=== PATIENT | male | born 1985 | race Caucasian/White ===

== ENCOUNTER 2017-03-13 16:21 | Inpatient (IN) ==
[2017-03-13] MEDS ORDERED: Vancomycin 1,250 MG in D5% in Water 250 ML IVPB ONE ×2 (16:46→17:00)
[2017-03-13] MEDS ORDERED: Ketorolac 15 MG/ML VIAL IVP ONE (16:51)
--- NOTE | 2017-03-13 16:53 | Emergency Department Note ---
Disposition Clinical Impression: Left arm pain Disposition: Still a Patient Condition: Good Referrals: Stephanie Medley CNP [Primary Care Provider] - Forms: Work/School Release, ED Satisfaction Letter Time of Disposition: 18:59 General Adult HPI - General Chief complaint: ED General Medical Stated complaint: Left arm injury Time Seen by Provider: 03/13/17 16:29 Source: patient Limitations: no limitations Nursing Notes Reviewed: Yes Vital Signs Reviewed: Yes - History of Present Illness HPI Narrative: Patient with a one-month history of left arm pain. He states he had an injury to this 1 month ago. He states over the past couple days he has noticed that there is been an increased pain and swelling to the area. Is also complaining of fevers chills and rigors over the past weekend. He states he has also had some nausea and vomiting. Patient's left elbow is red warm and swollen. He has strong pulses distal to this. The compartments are still soft. Pain Scale: 9 - Related Data Home Medications Medication Instructions Recorded Confirmed Buprenorphine HCl/Naloxone HCl 0.5 tab PO TID 12/04/15 [Suboxone 8 mg-2 mg Sl Film] Previous Rx's Medication Instructions Recorded Levofloxacin [Levaquin] 500 mg PO DAILY #10 tablet 12/05/15 Sulfamethoxazole/Trimeth DS 1 each PO BID #20 tablet 12/05/15 [Bactrim DS] Ciprofloxacin HCl/Dexameth 7.5 ml OT BID #1 drops.susp 03/18/16 [Ciprodex Otic Suspension] Oxycodone HCl/Acetaminophen 1 - 2 each PO Q6-8H PRN #20 tablet 03/18/16 [Percocet 5-325 mg Tablet] Cephalexin [Keflex] 500 mg PO QID #24 capsule 06/18/16 HYDROcodone/Acet 5/325 mg [[place] 1 tab PO Q6H PRN #5 tab 06/20/16 5-325 mg] Sulfamethoxazole/Trimeth DS 1 each PO BID #14 tablet 06/20/16 [Bactrim DS] Erythromycin OPTH Oint 1 appl RIGHT EYE ONCE 10 Days 10/24/16 Hydrocodone/Acetaminophen [[place] 1 tab PO Q6H PRN #14 tab 10/24/16 5-325 Tablet] Acetaminophen w/Cod 300-30 mg 1 each PO Q6HR #10 tablet 11/12/16 [Tylenol w/Codeine #3] Doxycycline 100 mg PO BID #20 capsule 11/12/16 Allergies Allergy/AdvReac Type Severity Reaction Status Date / Time No Known Allergies Allergy Verified 11/12/16 11:34 Past Medical History - Past Medical History Medical history: Reports: no medical history Surgical history: Reports: no surgical history Psychiatric history: Reports: no psych history, other - Social History Smoking Status: Current every day smoker Smokeless Tobacco Status: No Alcohol use: Reports: occasionally Drug use: Reports: none Physical Exam - General Limitations: no limitations General appearance: alert, in distress - Head Head exam: atraumatic, normocephalic - Eye Eye exam: Present: normal appearance, PERRL, EOMI. Absent: scleral icterus - ENT ENT exam: normal exam, normal oropharynx, mucous membranes moist - Neck Neck exam: Present: normal inspection, full ROM, trachea midline - Chest Chest inspection: Present: normal inspection, symmetric chest wall rise - Cardiovascular Cardiovascular exam: Present: regular rate, normal rhythm, normal heart sounds - Abdominal Exam Abdominal exam: Present: soft, Non-Tender, normal bowel sounds. Absent: tenderness, distention, guarding, rebound, rigidity, organomegaly - Expanded Upper Extremity Exam Shoulder exam: Present: normal inspection, full ROM Arm exam: Present: normal inspection, full ROM Elbow exam: Present: normal inspection (To right), full ROM (2 right), other ( Left elbow erythematous and warm and edematous. Extends approximately 2 cm distal to the olecranon and 2 cm proximal to the olecranon. Compartments are soft. Patient is neurovascularly intact in both upper extremities. Axillary lymphadenopathy noted. Decreased range of motion to the left elbow.) Forearm/Wrist exam: Present: normal inspection, full ROM Hand exam: Present: normal inspection, full ROM Vascular exam: Normal: capillary refill, radial pulse - Expanded Lower Extremity Exam Hip/Pelvis exam: Present: normal inspection, full ROM Upper leg exam: Present: normal inspection, full ROM Knee exam: Present: normal inspection, full ROM Lower leg exam: Present: normal inspection, full ROM Ankle exam: Present: normal inspection, full ROM Foot/toe exam: Present: normal inspection, full ROM Neurovascular/Tendon exam: Absent: motor deficit, sensory deficit, tendon deficit - Back Exam Back exam: Present: normal inspection, full ROM. Absent: tenderness, CVA tenderness (R), CVA tenderness (L) - Neurological Exam Neurological exam: Present: alert, oriented X3 - Psychiatric Psychiatric exam: Present: normal affect, normal mood - Skin Skin exam: Present: warm, dry, intact, normal color. Absent: rash Course Course Narrative: Pt presenting to the ED complaining of 1 month history of left arm pain. Patient said he fell approximately a month ago and had pain to his left elbow. He states however that over the past weekend he is to visit his elbow is now getting red and swollen. He has fevers and chills. He is now nauseated and vomiting. He is also complaining of a cough that is productive. Patient states that he takes Suboxone occasionally but this is not helping with his pain. He denies any chest pain. He denies any shortness of breath. He states that he just "feels bad." Patient appears ill. His left elbow is swollen warm and red. The erythema extends approximately 2 proximal and distal to his olecranon. He has decreased range of motion of his left elbow. There is an area of abrasion to his olecranon process. It is draining a clear fluid. The joint is tender to palpation. The compartments of patient's upper and lower arm are still soft. He is neurovascularly intact distal to this injury. I do not appreciate any axillary lymphadenopathy. Patient's lung sounds are clear bilaterally. His heart tones are normal. His abdomen is soft and nontender. He is tachycardic and has a fever while here. We will run a sepsis panel on him. We will give him a fluid bolus and start him on antibiotics for possible infection to his left elbow. While patient is here is very calm obvious that it is very difficult to get an IV established. The nursing staff has tried several times to place 1. We will try a midline. If this is not successful we will place a central line. Vital Signs Temperature 101.0 F H 03/13/17 16:24 Pulse Rate 153 03/13/17 16:24 Respiratory Rate 18 03/13/17 16:24 Blood Pressure 114/69 03/13/17 16:24 O2 Sat by Pulse Oximetry 96 03/13/17 16:24 Temperature 101.0 F H 03/13/17 16:24 Pulse Rate 153 03/13/17 17:16 Respiratory Rate 18 03/13/17 17:16 Blood Pressure 114/69 03/13/17 17:16 O2 Sat by Pulse Oximetry 96 03/13/17 17:16 Oxygen Delivery Oxygen Delivery Room Air Medical Decision Making - Lab Data Result diagrams: 03/13/17 17:06 03/13/17 17:06 Lab Results 03/13/17 03/13/17 03/13/17 Range/Units 17:06 17:06 17:06 WBC 15.0 H (4.3-11.1) K/mcL RBC 5.00 (4.19-5.50) M/mcL Hgb 13.8 (12.9-16.9) g/dL Hct 40.0 (37.5-50.1) % MCV 80.0 L (83.0-100.0) fL MCH 27.6 L (28.0-33.3) pg MCHC 34.5 (31.6-35.5) g/dL RDW 13.2 (11.5-14.5) % Plt Count 107 L (140-400) K/mcL MPV 11.8 (9.4-12.4) fL Immature Gran % Test Not Performed Seg Neutrophils % 84.0 % Band Neutrophils % 11.0 H (0-4) % Lymphocytes % 1.0 % Monocytes % 4.0 % Eosinophils % Test Not Performed Basophils % Test Not Performed Neutrophils # 14.3 H (1.6-8.9) K/mcL Lymphocytes # 0.2 L (0.6-4.6) K/mcL Monocytes # 0.6 (0.0-1.3) K/mcL Eosinophils # Test Not Performed Basophils # Test Not Performed Platelet Estimate Slight Decrease L (Normal) ESR (0-10) mm/hr Sodium 126 L (136-145) mEq/L Potassium 3.7 (3.5-4.5) mEq/L Chloride 92 L (98-109) mEq/L Carbon Dioxide 23 (19-29) mEq/L BUN 13 (8-26) mg/dL Creatinine 0.80 (0.72-1.25) mg/dL Est GFR ( Amer) > 60 (> 60) Est GFR (Non-Af Amer) > 60 (> 60) BUN/Creatinine Ratio 16 (6-26) Glucose 130 H (70-99) mg/dL Calculated Osmolality 264 L (280-300) Lactic Acid 2.5 H (0.5-2.2) mmol/L Calcium 9.3 (8.6-10.8) mg/dL Total Bilirubin 6.0 H (0.2-1.2) mg/dL Direct Bilirubin 4.9 H (0.0-0.5) mg/dL Indirect Bilirubin 1.1 (0.0-1.2) mg/dL AST 60 H (5-34) Units/L ALT 79 H (0-55) Units/L Alkaline Phosphatase 146 H (38-126) Units/L Troponin I (0-0.03) ng/mL C-Reactive Protein 227 H (Less than 5) mg/L Serum Total Protein 7.0 (6.0-8.3) g/dL Albumin 3.0 L (3.5-5.0) g/dL Globulin 4.0 H (2.4-3.5) g/dL Albumin/Globulin Ratio 0.8 L (1.1-2.2) 03/13/17 03/13/17 Range/Units 17:06 17:06 WBC (4.3-11.1) K/mcL RBC (4.19-5.50) M/mcL Hgb (12.9-16.9) g/dL Hct (37.5-50.1) % MCV (83.0-100.0) fL MCH (28.0-33.3) pg MCHC (31.6-35.5) g/dL RDW (11.5-14.5) % Plt Count (140-400) K/mcL MPV (9.4-12.4) fL Immature Gran % Seg Neutrophils % % Band Neutrophils % (0-4) % Lymphocytes % % Monocytes % % Eosinophils % Basophils % Neutrophils # (1.6-8.9) K/mcL Lymphocytes # (0.6-4.6) K/mcL Monocytes # (0.0-1.3) K/mcL Eosinophils # Basophils # Platelet Estimate (Normal) ESR 76 H (0-10) mm/hr Sodium (136-145) mEq/L Potassium (3.5-4.5) mEq/L Chloride (98-109) mEq/L Carbon Dioxide (19-29) mEq/L BUN (8-26) mg/dL Creatinine (0.72-1.25) mg/dL Est GFR ( Amer) (> 60) Est GFR (Non-Af Amer) (> 60) BUN/Creatinine Ratio (6-26) Glucose (70-99) mg/dL Calculated Osmolality (280-300) Lactic Acid (0.5-2.2) mmol/L Calcium (8.6-10.8) mg/dL Total Bilirubin (0.2-1.2) mg/dL Direct Bilirubin (0.0-0.5) mg/dL Indirect Bilirubin (0.0-1.2) mg/dL AST (5-34) Units/L ALT (0-55) Units/L Alkaline Phosphatase (38-126) Units/L Troponin I 0.00 (0-0.03) ng/mL C-Reactive Protein (Less than 5) mg/L Serum Total Protein (6.0-8.3) g/dL Albumin (3.5-5.0) g/dL Globulin (2.4-3.5) g/dL Albumin/Globulin Ratio (1.1-2.2) S.B.ARock - S.B.A.R. Background: Presenting Complaint (Left elbow pain productive cough fevers chills nausea vomiting.) Assessment: Vital Signs (Patient's tachycardic), Course and respsone to treatment (Unable to obtain an IV still attempting this.), Outstanding Labs (CT with contrast of left elbow. Timed lactate.) Recommendation: Recommendation based on pending studies, treatments, or consults (Likely Admission. Midline placed if no midline available central line placed for IV administration and fluids.) S.B.A.R. Report Given to: stephanie Monge Repor Time: 18:57 Attestation Statement - Attestation Attestation: I personally interviewed and examined this patient and my medical decision- making was reviewed with the ED Resident Physician, Dr. Carlson. I agree with the documented findings, disposition and treatment plan as described except to the extent set forth below. Patient presents with a 3 week history of gradually worsening left posterior elbow and forearm pain and swelling erythema. She began having fevers and chills in the last 24 hours. He states he had fallen from a standing position and struck his left elbow on the ground causing some superficial abrasions at the initial time of injury. Now area looks cellulitic swollen and is extremely painful. Patient with tenderness to palpation over the olecranon as well as proximal forearm, compartments of the forearm are soft and he is neurovascularly intact. She also mentioned that since Tuesday he has had upper respiratory symptoms including what started as a nonproductive cough, now with productive yellow sputum. Agree with physical exam findings as documented. Was tachycardic but with a stable blood pressure on arrival as well as a fever. We did initiate a septic workup on the patient and initiated in IV fluid bolus on arrival and appropriate lab evaluation was ordered. Cultures were obtained and patient was started on vancomycin. Her obtaining CT imaging of the left arm. Notified by nursing that there is trouble getting a peripheral line. They are currently working on obtaining midline access. Labs are resulted. Patient pending antibiotics IV fluids and CT imaging. Patient remained hemodynamically stable at this time. Patient was signed out to the mini shifter staff to Dr. Yu. They will follow up on an vascular access if necessary, initiating IV fluids and antibiotics and following up on CT imaging and final disposition of patient.
[2017-03-13] MEDS ORDERED: Ondansetron 4 MG/2 ML VIAL IVP ONE (16:55)
[2017-03-13 17:21] LABS: Hemoglobin 13.8 g/dL (12.9-16.9); Mean Corpuscular HGB Conc 34.5 g/dL (31.6-35.5); Mean Corpuscular Hemoglobin 27.6 pg (28.0-33.3); Mean Platelet Volume 11.8 fL (9.4-12.4); Platelet Count 107 K/mcL (140-400); Red Cell Distribution Width 13.2 % (11.5-14.5)
[2017-03-13 17:35] LABS: Alanine Aminotransferase 79 Units/L (0-55); Albumin/Globulin Ratio 0.8 (1.1-2.2); Alkaline Phosphatase 146 Units/L (38-126); Aspartate Amino Transferase 60 Units/L (5-34); BUN/Creatinine Ratio 16 (6-26); Bilirubin,Direct 4.9 mg/dL (0.0-0.5); Bilirubin,Indirect 1.1 mg/dL (0.0-1.2); Blood Urea Nitrogen 13 mg/dL (8-26); Calcium 9.3 mg/dL (8.6-10.8); Carbon Dioxide 23 mEq/L (19-29); Chloride 92 mEq/L (98-109); Glucose 130 mg/dL (70-99); Osmolality,Calculated 264 (280-300); Potassium 3.7 mEq/L (3.5-4.5); Sodium 126 mEq/L (136-145); eGFR For African Americans > 60 (> 60); eGFR For Non-African Americans > 60 (> 60)
[2017-03-13 17:37] LABS: Lymphocytes # 0.2 K/mcL (0.6-4.6); Monocytes # 0.6 K/mcL (0.0-1.3); Neutrophils # 14.3 K/mcL (1.6-8.9)
[2017-03-13 17:38] LABS: Platelet Estimate Slight Decrease (Normal)
[2017-03-13] MEDS ORDERED: 0.9 % Sodium Chloride 1,000 ML IVC ONE (17:50)
[2017-03-13 18:07] LABS: C-Reactive Protein 227 mg/L (Less than 5)
[2017-03-13] MEDS ORDERED: 0.9 % Sodium Chloride 500 ML IVC ONE (19:29)
[2017-03-13] MEDS ORDERED: Ibuprofen 600 MG TABLET PO ONE (19:36)
--- NOTE | 2017-03-13 19:42 | Emergency Department Note ---
Disposition Clinical Impression: Left arm pain, Cellulitis of left forearm Sepsis Qualifiers: Sepsis type: sepsis due to unspecified organism Qualified Code(s): A41.9 - Sepsis, unspecified organism Disposition: Admitted As Inpatient Condition: Good Referrals: Stephanie Medley CNP [Primary Care Provider] - Forms: ED Satisfaction Letter, Work/School Release Time of Disposition: 21:02 General Adult HPI - General Chief complaint: ED General Medical Stated complaint: Left arm injury Time Seen by Provider: 03/13/17 16:29 Source: patient Limitations: no limitations - History of Present Illness Pain Scale: 9 - Related Data Home Medications Medication Instructions Recorded Confirmed Buprenorphine HCl/Naloxone HCl 0.5 tab PO TID 12/04/15 [Suboxone 8 mg-2 mg Sl Film] Previous Rx's Medication Instructions Recorded Levofloxacin [Levaquin] 500 mg PO DAILY #10 tablet 12/05/15 Sulfamethoxazole/Trimeth DS 1 each PO BID #20 tablet 12/05/15 [Bactrim DS] Ciprofloxacin HCl/Dexameth 7.5 ml OT BID #1 drops.susp 03/18/16 [Ciprodex Otic Suspension] Oxycodone HCl/Acetaminophen 1 - 2 each PO Q6-8H PRN #20 tablet 03/18/16 [Percocet 5-325 mg Tablet] Cephalexin [Keflex] 500 mg PO QID #24 capsule 06/18/16 HYDROcodone/Acet 5/325 mg [[place] 1 tab PO Q6H PRN #5 tab 06/20/16 5-325 mg] Sulfamethoxazole/Trimeth DS 1 each PO BID #14 tablet 06/20/16 [Bactrim DS] Erythromycin OPTH Oint 1 appl RIGHT EYE ONCE 10 Days 10/24/16 Hydrocodone/Acetaminophen [[place] 1 tab PO Q6H PRN #14 tab 10/24/16 5-325 Tablet] Acetaminophen w/Cod 300-30 mg 1 each PO Q6HR #10 tablet 11/12/16 [Tylenol w/Codeine #3] Doxycycline 100 mg PO BID #20 capsule 11/12/16 Allergies Allergy/AdvReac Type Severity Reaction Status Date / Time No Known Allergies Allergy Verified 11/12/16 11:34 Past Medical History - Past Medical History Medical history: Reports: no medical history Surgical history: Reports: no surgical history Psychiatric history: Reports: no psych history, other - Social History Smoking Status: Current every day smoker Smokeless Tobacco Status: No Alcohol use: Reports: occasionally Drug use: Reports: none Physical Exam - General Limitations: no limitations General appearance: alert, in distress Course Course Narrative: Patient signed out by the daytime physicians Dr. Vidales and Dr. Carlson. Review of the patient's symptoms as well as medical intervention were discussed. IV access was not obtained during the treatment course. Bedside ultrasound was attempted and failed. I went in and placed a right-sided EJ 18-gauge single lumen catheter without complication. Fluids are running at this time. Contrasted scans of the chest and abdomen ordered as well as left arm. Concern is noted that the left upper extremity cellulitis is not the source of the patient's infection and generalized illness. Reviewing his labs he has an elevated white count with bandemia along with elevated T bili along with alkaline phosphatase. Patient is concerning for potential abdominal pathology liver related issues as well as septic emboli or pulmonary source to his infectious etiology. The left elbow does look red and irritated and swollen but does not show significant enough symptoms to be causing this presentation. He does physically present septic with elevated heart rate and fever up to 101. Motrin given at this time 3 L of fluid ordered. Disposition pending treatment course and workup. We will continue to monitor as patient is stabilized and treatment course is completed. - Reevaluation(s) Reevaluation #1: CT of the patient's chest and abdomen are negative for acute pathology at this time. Does show acute signs of hepatitis based on labs and imaging. Gallbladder appears normal. Vital signs were stable throughout the course of care except for tachycardia. Fever was controlled with Motrin with protection of his liver note Tylenol given at this time. Fluid boluses ordered at this point is to be given in total. Vancomycin and Zosyn order for infectious pathology protection. Patient is otherwise stable resting comfortably in the bed. CT of the arm does show cellulitic-like presentation compartments are soft his normal neuromotor function extremity with limited range of motion left elbow secondary to swelling. Otherwise no other acute issues at this time. Patient is stable resting comfortably in the bed. Will be admitted to the hospitalist. Detailed review was discussed with the hospitalist Dr. Appiah reviewed patient's presentation symptoms medical history. No other recommendations except that the patient be placed on telemetry bed at this time. Patient will be served here in the emergency room until admission process is completed. Time: 21:08 Vital Signs Temperature 101.0 F H 03/13/17 16:24 Pulse Rate 153 03/13/17 16:24 Respiratory Rate 18 03/13/17 16:24 Blood Pressure 114/69 03/13/17 16:24 O2 Sat by Pulse Oximetry 96 03/13/17 16:24 Temperature 101.0 F H 03/13/17 16:24 Pulse Rate 128 03/13/17 20:18 Respiratory Rate 18 03/13/17 20:18 Blood Pressure 132/90 03/13/17 20:18 O2 Sat by Pulse Oximetry 98 03/13/17 20:18 Oxygen Delivery Oxygen Delivery Room Air Medical Decision Making - MDM Narrative Medical decision making narrative: Sepsis, left elbow infection, abnormal laboratory workup, - Medical Records Medical records reviewed: Yes I reviewed the patient's medical records. - Lab Data Lab results reviewed: Yes I reviewed the patient's lab results. Result diagrams: 03/13/17 17:06 03/13/17 17:06 Lab Results 03/13/17 03/13/17 03/13/17 Range/Units 17:06 17:06 17:06 WBC 15.0 H (4.3-11.1) K/mcL RBC 5.00 (4.19-5.50) M/mcL Hgb 13.8 (12.9-16.9) g/dL Hct 40.0 (37.5-50.1) % MCV 80.0 L (83.0-100.0) fL MCH 27.6 L (28.0-33.3) pg MCHC 34.5 (31.6-35.5) g/dL RDW 13.2 (11.5-14.5) % Plt Count 107 L (140-400) K/mcL MPV 11.8 (9.4-12.4) fL Immature Gran % Test Not Performed Seg Neutrophils % 84.0 % Band Neutrophils % 11.0 H (0-4) % Lymphocytes % 1.0 % Monocytes % 4.0 % Eosinophils % Test Not Performed Basophils % Test Not Performed Neutrophils # 14.3 H (1.6-8.9) K/mcL Lymphocytes # 0.2 L (0.6-4.6) K/mcL Monocytes # 0.6 (0.0-1.3) K/mcL Eosinophils # Test Not Performed Basophils # Test Not Performed Platelet Estimate Slight Decrease L (Normal) ESR (0-10) mm/hr Sodium 126 L (136-145) mEq/L Potassium 3.7 (3.5-4.5) mEq/L Chloride 92 L (98-109) mEq/L Carbon Dioxide 23 (19-29) mEq/L BUN 13 (8-26) mg/dL Creatinine 0.80 (0.72-1.25) mg/dL Est GFR ( Amer) > 60 (> 60) Est GFR (Non-Af Amer) > 60 (> 60) BUN/Creatinine Ratio 16 (6-26) Glucose 130 H (70-99) mg/dL Calculated Osmolality 264 L (280-300) Lactic Acid 2.5 H (0.5-2.2) mmol/L Calcium 9.3 (8.6-10.8) mg/dL Total Bilirubin 6.0 H (0.2-1.2) mg/dL Direct Bilirubin 4.9 H (0.0-0.5) mg/dL Indirect Bilirubin 1.1 (0.0-1.2) mg/dL AST 60 H (5-34) Units/L ALT 79 H (0-55) Units/L Alkaline Phosphatase 146 H (38-126) Units/L Troponin I (0-0.03) ng/mL C-Reactive Protein 227 H (Less than 5) mg/L Serum Total Protein 7.0 (6.0-8.3) g/dL Albumin 3.0 L (3.5-5.0) g/dL Globulin 4.0 H (2.4-3.5) g/dL Albumin/Globulin Ratio 0.8 L (1.1-2.2) 03/13/17 03/13/17 03/13/17 Range/Units 17:06 17:06 20:11 WBC (4.3-11.1) K/mcL RBC (4.19-5.50) M/mcL Hgb (12.9-16.9) g/dL Hct (37.5-50.1) % MCV (83.0-100.0) fL MCH (28.0-33.3) pg MCHC (31.6-35.5) g/dL RDW (11.5-14.5) % Plt Count (140-400) K/mcL MPV (9.4-12.4) fL Immature Gran % Seg Neutrophils % % Band Neutrophils % (0-4) % Lymphocytes % % Monocytes % % Eosinophils % Basophils % Neutrophils # (1.6-8.9) K/mcL Lymphocytes # (0.6-4.6) K/mcL Monocytes # (0.0-1.3) K/mcL Eosinophils # Basophils # Platelet Estimate (Normal) ESR 76 H (0-10) mm/hr Sodium (136-145) mEq/L Potassium (3.5-4.5) mEq/L Chloride (98-109) mEq/L Carbon Dioxide (19-29) mEq/L BUN (8-26) mg/dL Creatinine (0.72-1.25) mg/dL Est GFR ( Amer) (> 60) Est GFR (Non-Af Amer) (> 60) BUN/Creatinine Ratio (6-26) Glucose (70-99) mg/dL Calculated Osmolality (280-300) Lactic Acid 3.4 H (0.5-2.2) mmol/L Calcium (8.6-10.8) mg/dL Total Bilirubin (0.2-1.2) mg/dL Direct Bilirubin (0.0-0.5) mg/dL Indirect Bilirubin (0.0-1.2) mg/dL AST (5-34) Units/L ALT (0-55) Units/L Alkaline Phosphatase (38-126) Units/L Troponin I 0.00 (0-0.03) ng/mL C-Reactive Protein (Less than 5) mg/L Serum Total Protein (6.0-8.3) g/dL Albumin (3.5-5.0) g/dL Globulin (2.4-3.5) g/dL Albumin/Globulin Ratio (1.1-2.2) - Radiology Data Radiology results reviewed: Yes I reviewed the patient's radiology results. - EKG Data EKG #1 EKG attestation: Yes I reviewed and interpreted this EKG. EKG shows normal: sinus rhythm, axis, intervals, QRS complexes, ST-T waves Rate: normal Rhythm: NSR [place]/QRS: normal When compared to previous EKG there are: no significant changes Interpretation: no acute changes, unchanged when compared to prior tracing (date ) (06/27/14) Critical Care Time Critical Care Time: Yes Total Critical Care Time: 45 Attestation: Independent of medical intervention and procedural management. Critical care performed: Time is exclusive of separately billable procedures. Time includes: direct patient care, patient reassessment, coordination of patient care, interpretation of data (laboratory data, radiology data, and respiratory data), review of patient's medical records, medical consultation and documentation of patient care. Procedures included in critical care time: Procedures excluded from critical care time: Attestation Statement - Attestation Attestation: I, Parth Yu MD, personally evaluated this patient and discussed their management with the resident physician. I reviewed the resident's note and agree with the documented findings, medical decision making, and plan of care. This patient was signed out at shift change from Dr. Carlson and Dr. Roxanna Vidales. Please refer to their notes for complete details of the history and physical examination. Patient presented febrile and tachycardic with cellulitis of the left elbow. At shift change patient is awaiting CT of the left elbow and further test results. Lab revealed a leukocytosis with bandemia. Patient does admit to some cough and shortness of breath so a CT of the chest was added. Also lab revealed a total bilirubin of 6 with mildly elevated hepatic enzymes so a CT of the abdomen and pelvis was also added. On examination patient is a well-developed well-nourished male in no acute distress. He does appear acutely ill. There is a marked cellulitis of the left elbow extending slightly up onto the upper arm and down onto the proximal forearm. He has markedly limited range of motion of the elbow due to pain and swelling. Neurovascular function is intact distally. Breath sounds are clear and equal bilaterally. Heart is regular with a significant tachycardia. Abdomen soft with normal bowel sounds and mild diffuse upper abdominal tenderness. Labs reviewed. CT is reviewed. Patient received IV fluid boluses and IV antibiotics. The hospitalist, Dr. Appiah, was consulted and accepted admission of this patient.
[2017-03-13] MEDS: 0.9 % Sodium Chloride 1,000 ML IVC SCH ×2 (20:06→22:01)
[2017-03-13] MEDS ORDERED: Ondansetron 4 MG/2 ML VIAL IVP PRN (22:21)
[2017-03-13] MEDS ORDERED: Ketorolac 30 MG/ML VIAL IVP PRN (22:21)
[2017-03-13] MEDS ORDERED: Naloxone 0.4 MG/ML INJ IVP PRN (22:21)
[2017-03-13] MEDS ORDERED: Acetaminophen 325 MG TABLET PO PRN (22:21)
--- NOTE | 2017-03-13 22:30 | Internal Med History&Physical ---
Date of Encounter: 03/13/17 Time of Encounter: 22:28 Assessment and Plan (1) Sepsis Current visit: Yes Status: Acute Severe Sepsis secondary to left elbow cellulitis, bandemia Continue vancomycin and start cefepime Cultures pending Aggressive hydration with IV fluids Qualifiers: Sepsis type: sepsis due to unspecified organism Qualified Code(s): A41.9 - Sepsis, unspecified organism (2) Hepatitis B Current visit: Yes Status: Acute Order Christina-Hernandez as the patient shows evidence of hepatitis and the CT scan Ultrasound of the right upper quadrant Qualifiers: Viral hepatitis chronicity: chronic Hepatic coma status: without hepatic coma Hepatitis delta agent presence: without delta-agent Qualified Code(s): B18.1 - Chronic viral hepatitis B without delta-agent (3) Hepatitis C Current visit: Yes Status: Acute Qualifiers: Viral hepatitis chronicity: chronic Hepatic coma status: without hepatic coma Qualified Code(s): B18.2 - Chronic viral hepatitis C (4) Cellulitis of left forearm Current visit: Yes Status: Acute (5) Tobacco abuse Current visit: Yes Status: Acute Smoking cessation counseling given for 5 minutes. Nicotine patch ordered (6) Hyponatremia Current visit: Yes Status: Acute Unclear etiology Monitor sodium closely in order urine sodium and osmolality Omeprazole for GI prophylaxis and subcutaneous heparin for DVT prophylaxis. The patient will be admitted as inpatient, expected to stay more than 20 minutes. Full code. Time spent on this admission 40 minutes. High risk due to sepsis Internal Medicine - H&P: HPI Chief complaint: Left arm pain Admitted From: Emergency Dept History of present illness: Mr. Molina is a 31 year old male with a past medical history of remote IV drug abuse, tobacco abuse, hepatitis B and C who apparently started having an infection in his left elbow for the past month but Worse in the past few days, he has not received any antibiotics until today. He developed a fever 101 and his heart rate was 153 that came down to 128 after receiving IV fluids. White blood cell count is 15, bands are 11%, sodium is 126 ESR 76 bilirubin 6 and direct bilirubin 4.9 AST [address] scan of the abdomen shows swelling of the liver consistent with possible hepatitis and splenomegaly. Patient was started on vancomycin and Zosyn due to history of IV drug abuse. Timolol was given. Lactic acid increased from 2.5 up to 3.4. Patient is very sleepy but he is able to give a proper history. He says that he has not used any drugs in the past 3 years and takes buprenorphine on and off Past Med Surg Social Fam HX - Past Medical History Medical history: other (Hepatitis B and C, tobacco abuse, history of polysubstance abuse with IV drug abuse in the past) Psychiatric history: no psych history, other - Past Surgical History Surgical History: no surgical history - Social History Smoking Status: Current every day smoker Packs per day: 1 pack per day Smokeless Tobacco Status: No Alcohol use: occasionally Drug use: none (none recently) - Family History Mother Family Member Ethnicity: Non- Living Status: Still Living Hx Family Cardiac Disorders: No Hx Family Respiratory Disorders: No Hx Family Cancer: No Hx Family GI Disorders: No Hx Family Endocrine Disorder: Yes (Diabetes Mellitus) Hx Family Neuromuscular Disorders: No Hx Family Neurologic Disorders: No Hx Family HEENT Disorders: No Hx Family Autoimmune Disorders: No Father Living Status: Still Living - Additional Family History Additional family history: Denies any family history Internal Medicine - H&P: Meds Buprenorphine HCl/Naloxone HCl [Suboxone 8 mg-2 mg Sl Film] 0.5 tab PO TID 12/04 [History] Levofloxacin [Levaquin] 500 mg PO DAILY #10 tablet 12/05/15 [Rx] Sulfamethoxazole/Trimeth DS [Bactrim DS] 1 each PO BID #20 tablet 12/05/15 [Rx] Ciprofloxacin HCl/Dexameth [Ciprodex Otic Suspension] 7.5 ml OT BID #1 drops.susp 03/18/16 [Rx] Oxycodone HCl/Acetaminophen [Percocet 5-325 mg Tablet] 1 - 2 each PO Q6-8H PRN # 20 tablet 03/18/16 [Rx] Cephalexin [Keflex] 500 mg PO QID #24 capsule 06/18/16 [Rx] HYDROcodone/Acet 5/325 mg [[place] 5-325 mg] 1 tab PO Q6H PRN #5 tab 06/20/16 [Rx] Sulfamethoxazole/Trimeth DS [Bactrim DS] 1 each PO BID #14 tablet 06/20/16 [Rx] Erythromycin OPTH Oint 1 appl RIGHT EYE ONCE 10 Days 10/24/16 [Rx] Hydrocodone/Acetaminophen [[place] 5-325 Tablet] 1 tab PO Q6H PRN #14 tab [Rx] Acetaminophen w/Cod 300-30 mg [Tylenol w/Codeine #3] 1 each PO Q6HR #10 tablet 11/12/16 [Rx] Doxycycline 100 mg PO BID #20 capsule 11/12/16 [Rx] Allergies No Known Allergies Allergy (Verified 11/12/16 11:34) All Systems PM: A 10-system review of systems was performed and is negative for pertinent findings except as documented above in the HPI. Review of systems: Complains of severe pain in the left arm, fevers, other systems out of the 10 reviewed were negative - Constitutional Vitals: Temp Pulse Resp BP Pulse Ox 99.9 F H 117 18 101/59 97 03/13/17 21:47 03/13/17 21:47 03/13/17 21:55 03/13/17 21:55 03/13/17 21:47 General appearance: Present: A&O X 3 - Head Head exam: Present: atraumatic, normocephalic - Eye Eye exam: Present: PERRL, conjuntiva pink, sclera anicteric Pupils: Present: PERRL - Neck Neck exam general surgery: Present: supple, trachea midline. Absent: lymphadenopathy - Respiratory Respiratory exam: Present: CTAB. Absent: accessory muscle use, rales, rhonchi, wheezes - Cardiovascular Cardiovascular exam: Present: RRR, +S1, +S2. Absent: diastolic murmur, gallop, rubs, systolic murmur - GI/Abdominal GI/Abdominal exam: Present: normal bowel sounds, soft, no peritoneal signs. Absent: distended, tenderness - Extremities Exam Extremities exam: Present: tenderness (Severe swelling and erythema/tenderness in the left elbow area with excoriations of about 4 cm), warm, radial pulses palpable and symetrical. Absent: calf tenderness, cyanotic, pedal edema - Neurological Exam Neurological exam: Present: CN II-XII intact, oriented X3, no focal deficits. Absent: pronater drift, facial droop, speech deficit - Skin Skin exam: Present: dry, intact Internal Med - H&P Results - Labs CBC & Chem 7: 03/13/17 17:06 03/13/17 17:06
[2017-03-13] MEDS ORDERED: Vancomycin (wt based) 1,000 MG VIAL IVPB SCH (23:00)
[2017-03-13 23:14] LABS: Hepatitis B Surface Antigen Nonreactive (Nonreactive)
[2017-03-14 01:07] LABS: Basophils % 0.2 %; Eosinophils % 1.1 %; Immature Granulocytes % 0.8 % (0-4); Red Cell Distribution Width 13.2 % (11.5-14.5); Segmented Neutrophils % 90.8 %
[2017-03-14 01:09] LABS: Eosinophils # 0.1 K/mcL (0.0-0.6); Hematocrit 32.8 % (37.5-50.1); Hemoglobin 11.2 g/dL (12.9-16.9); Immature Platelets 10.9 % (1.1-6.1); Lymphocytes # 0.3 K/mcL (0.6-4.6); Mean Corpuscular HGB Conc 34.1 g/dL (31.6-35.5); Mean Corpuscular Hemoglobin 27.7 pg (28.0-33.3); Mean Platelet Volume 11.2 fL (9.4-12.4); Monocytes # 0.4 K/mcL (0.0-1.3); Monocytes % 4.1 %; Neutrophils # 8.8 K/mcL (1.6-8.9); Red Blood Count 4.05 M/mcL (4.19-5.50)
[2017-03-14 01:14] LABS: Platelet Count 82 K/mcL (140-400)
[2017-03-14 01:22] LABS: Alanine Aminotransferase 57 Units/L (0-55); Albumin/Globulin Ratio 0.7 (1.1-2.2); Alkaline Phosphatase 108 Units/L (38-126); Aspartate Amino Transferase 43 Units/L (5-34); BUN/Creatinine Ratio 17 (6-26); Blood Urea Nitrogen 13 mg/dL (8-26); Calcium 8.2 mg/dL (8.6-10.8); Carbon Dioxide 25 mEq/L (19-29); Chloride 99 mEq/L (98-109); Globulin 3.2 g/dL (2.4-3.5); Glucose 128 mg/dL (70-99); Osmolality,Calculated 272 (280-300); Potassium 3.7 mEq/L (3.5-4.5); Sodium 130 mEq/L (136-145); eGFR For African Americans > 60 (> 60); eGFR For Non-African Americans > 60 (> 60)
[2017-03-14 01:24] LABS: Albumin 2.2 g/dL (3.5-5.0); Total Protein 5.4 g/dL (6.0-8.3)
[2017-03-14 01:25] LABS: Bilirubin,Total 5.1 mg/dL (0.2-1.2)
[2017-03-14] MEDS: *HR* Heparin 5,000 UNIT/ML VIAL SQ SCH ×3 (01:27→15:23)
[2017-03-14] MEDS: 0.9 % Sodium Chloride 1,000 ML IVC SCH ×4 (01:28→15:22)
[2017-03-14] MEDS: Nicotine 21 MG PATCH.TD24 TD SCH ×2 (01:29→08:11)
[2017-03-14 01:40] LABS: Platelet Estimate Decreased (Normal)
[2017-03-14] MEDS: Vancomycin 1,250 MG in D5% in Water 250 ML IVPB SCH ×3 (04:44→20:18)
[2017-03-14] MEDS: Cefepime HCl 1,000 MG in D5% in Water (Mini-Bag+) 100 ML IVPB SCH ×2 (06:38→17:14)
--- NOTE | 2017-03-14 10:50 | Internal Med Progress Note ---
Date of Encounter: 03/14/17 Time of Encounter: 10:00 - Assessment and plan (1) Cellulitis of left forearm Current Visit: Yes Status: Acute Assessment and plan: CT of left arm shows softer tissue inflammation, no abscess. Consider cellulitis. - Continue vancomycin and Zosyn treatment. - Follow up blood culture. - IV fluid for sepsis. -Closely monitoring Patient is at high risk because of vancomycin use, need close monitoring. (2) DVT prophylaxis Current Visit: No Status: Acute Assessment and plan: Heparin subcutaneously (3) Sepsis Current Visit: Yes Status: Acute Assessment and plan: Patient has a fever, tachycardia, leukocytosis, and elevated lactate level. Meet criteria of sepsis. - Early goal directed IVF resuscitation started in ER. Repeat lactate acid trended down to normal. - On antibiotic vancomycin and Zosyn. - Continue IV fluid and closely monitoring patient. Qualifiers: Sepsis type: sepsis due to unspecified organism Qualified Code(s): A41.9 - Sepsis, unspecified organism (4) Tobacco abuse Current Visit: Yes Status: Acute Assessment and plan: Smoking cessation education. Patient is on nicotine patch (5) Hepatitis B Current Visit: Yes Status: Acute Assessment and plan: HBsAg negative, suggest previous infection, not active. Qualifiers: Viral hepatitis chronicity: chronic Hepatic coma status: without hepatic coma Hepatitis delta agent presence: without delta-agent Qualified Code(s): B18.1 - Chronic viral hepatitis B without delta-agent (6) Hepatitis C Current Visit: Yes Status: Acute Assessment and plan: Old chart reviewed. Hep C antibody positive. Patient needs treatment as outpatient. Abnormal LTF most likely caused by sepsis. We will closely follow up LFT and avoid hepatotoxic medications. Qualifiers: Viral hepatitis chronicity: chronic Hepatic coma status: without hepatic coma Qualified Code(s): B18.2 - Chronic viral hepatitis C (7) Hyponatremia Current Visit: Yes Status: Acute Assessment and plan: Improved on IV normal saline. Follow-up sodium level. - Time Spent With Patient Greater than 35 minutes - Subjective Interval history: Patient is a 31-year-old male admitted for left-sided arm pain and swelling. Past medical history is significant for history of IV drug abuse, hepatitis B and C. Patient was seen and examined. He is awake alert, oriented 3. Still complaint left arm pain. No fever, vital signs stable. CT shows no abscess. Will continue antibiotic treatment for cellulitis. - Constitutional Vitals: Temp Pulse Resp BP Pulse Ox 99.6 F 124 20 97/54 97 03/14/17 10:02 03/14/17 10:02 03/14/17 10:02 03/14/17 10:02 03/14/17 10:02 General appearance: Present: mild distress, A&O X 3, answers questions appropriately - Head Head exam: Present: atraumatic, normocephalic - Eye Eye exam: Present: PERRL, conjuntiva pink, sclera anicteric Pupils: Present: PERRL - Neck Neck exam general surgery: Present: supple, trachea midline. Absent: lymphadenopathy - Respiratory Respiratory exam: Present: CTAB. Absent: accessory muscle use, rales, rhonchi, wheezes - Cardiovascular Cardiovascular exam: Present: RRR, +S1, +S2. Absent: diastolic murmur, gallop, rubs, systolic murmur - GI/Abdominal GI/Abdominal exam: Present: normal bowel sounds, soft, no peritoneal signs. Absent: distended, tenderness - Extremities Exam Extremities exam: Present: warm, radial pulses palpable and symetrical. Absent : calf tenderness, cyanotic, pedal edema Additional comments: Left arm around the elbow swelling, tenderness, warmth. - Neurological Exam Neurological exam: Present: CN II-XII intact, oriented X3, no focal deficits. Absent: pronater drift, facial droop, speech deficit - Skin Skin exam: Present: dry, intact Internal Medicine: Result - Labs CBC & Chem 7: 03/14/17 00:51 03/14/17 00:51 Labs: Short CBC 03/14/17 Range/Units 00:51 WBC 9.7 (4.3-11.1) K/mcL Hgb 11.2 L D (12.9-16.9) g/dL Hct 32.8 L (37.5-50.1) % Plt Count 82 L (140-400) K/mcL Neutrophils # 8.8 (1.6-8.9) K/mcL BMP 03/14/17 00:51 Sodium 130 L Potassium 3.7 Chloride 99 Carbon Dioxide 25 BUN 13 Creatinine 0.78 Glucose 128 H Calcium 8.2 L Liver Function 03/14/17 Range/Units 00:51 Total Bilirubin 5.1 H (0.2-1.2) mg/dL AST 43 H (5-34) Units/L ALT 57 H (0-55) Units/L Alkaline Phosphatase 108 (38-126) Units/L Albumin 2.2 L D (3.5-5.0) g/dL Consult Discharge Plan - Plan Referrals: Stephanie Medley, JOANNE [Primary Care Provider] -
[2017-03-14 12:18] LABS: Hepatitis A Antibody IgM Nonreactive (Nonreactive)
[2017-03-14 14:28] LABS: Hepatitis C Virus Antibody Reactive (Nonreactive)
[2017-03-14 14:31] LABS: Hepatitis B Core IgM Grayzone (Nonreactive)
[2017-03-14] MEDS ORDERED: diazePAM 10 MG TABLET PO SCH (15:15)
--- NOTE | 2017-03-14 18:23 | Event Note ---
Date of Encounter: 03/14/17 Time of Encounter: 18:20 Pt said he take 1/4 Suboxone 8-2mg film in the morning and evening (dose different with home med listed). Order placed as per pt told me.
[2017-03-14 18:24] LABS: Acinetobacter baumannii by PCR Not Detected (Not Detect); Candida albicans by PCR Not Detected (Not Detect); Candida glabrata by PCR Not Detected (Not Detect); Candida krusei by PCR Not Detected (Not Detect); Candida parapsilosis by PCR Not Detected (Not Detect); Candida tropicalis by PCR Not Detected (Not Detect); Enterococcus by PCR Not Detected (Not Detect); Escherichia coli by PCR Not Detected (Not Detect); Klebsiella oxytoca by PCR Not Detected (Not Detect); Klebsiella pneumoniae by PCR Not Detected (Not Detect); Pseudomonas aeruginosa by PCR Not Detected (Not Detect); Serratia marcescens by PCR Not Detected (Not Detect); Staphylococcus aureus by PCR Not Detected (Not Detect); Streptococcus agalactiae(B)PCR Not Detected (Not Detect); Streptococcus by PCR Not Detected (Not Detect); Streptococcus pneumoniae PCR Not Detected (Not Detect); Streptococcus pyogenes (A) PCR Not Detected (Not Detect); blaKPC Carbapenem-Resist Gene Not Detected (Not Detect); mecA Methicillin-Resist Gene Not Detected (Not Detect); vanA/B Vancomycin-Resist Genes Not Detected (Not Detect)
[2017-03-14] MEDS: Ibuprofen 600 MG TABLET PO PRN (18:39)
[2017-03-14] MEDS: NALOXONE HCL PO SCH (20:11)
[2017-03-14] MEDS: BUPRENORPHINE HCL PO SCH (20:11)
[2017-03-14] MEDS ORDERED: NON-FORMULARY MEDICATION 1 EACH EACH (Buprenorphine Hcl/Naloxone Hcl [Suboxone 8 Mg-2 Mg S PO SCH (21:00)
[2017-03-15] MEDS: *HR* Heparin 5,000 UNIT/ML VIAL SQ SCH ×2 (00:02→07:25)
[2017-03-15] MEDS: Vancomycin 1,250 MG in D5% in Water 250 ML IVPB SCH ×2 (04:46→12:00)
[2017-03-15] MEDS: 0.9 % Sodium Chloride 1,000 ML IVC SCH (04:46)
[2017-03-15] MEDS: Cefepime HCl 1,000 MG in D5% in Water (Mini-Bag+) 100 ML IVPB SCH (06:22)
--- NOTE | 2017-03-15 06:29 | Electrocardiograph Report ---
[address] [address] Test Date: 2017-03-13 Pat Name: Juan Luis Molina Department: 104 Room: 3A45 Gender: M Officer Lieutenant: : 1985 Requested By: Kaley Carlson Order Number: [id number] Reading MD: Danial Man MD Measurements Intervals [place] Rate: 126 P: 48 MT: 116 QRS: 71 QRSD: 94 T: 48 QT: 283 QTc: 358 Interpretive Statements SINUS TACHYCARDIA WITH SHORT MT INTERVAL Electronically Signed On 03-15-2017 6:27:34 EDT by Danial Man MD
[2017-03-15 06:40] LABS: Basophils % 0.1 %; Hemoglobin 10.5 g/dL (12.9-16.9); Mean Platelet Volume 12.5 fL (9.4-12.4); Monocytes % 3.7 %; Red Cell Distribution Width 14.1 % (11.5-14.5)
[2017-03-15 06:42] LABS: Eosinophils # 0.3 K/mcL (0.0-0.6); Eosinophils % 3.3 %; Hematocrit 29.9 % (37.5-50.1); Immature Granulocytes % 2.1 % (0-4); Immature Platelets 13.6 % (1.1-6.1); Lymphocytes # 0.5 K/mcL (0.6-4.6); Lymphocytes % 4.4 %; Mean Corpuscular HGB Conc 35.1 g/dL (31.6-35.5); Mean Corpuscular Hemoglobin 28.5 pg (28.0-33.3); Monocytes # 0.4 K/mcL (0.0-1.3); Platelet Count 74 K/mcL (140-400); Red Blood Count 3.69 M/mcL (4.19-5.50); Segmented Neutrophils % 86.4 %
[2017-03-15 06:51] LABS: Alanine Aminotransferase 41 Units/L (0-55); Albumin/Globulin Ratio 0.7 (1.1-2.2); Alkaline Phosphatase 111 Units/L (38-126); Aspartate Amino Transferase 37 Units/L (5-34); BUN/Creatinine Ratio 13 (6-26); Bilirubin,Direct 5.5 mg/dL (0.0-0.5); Bilirubin,Indirect 1.1 mg/dL (0.0-1.2); Bilirubin,Total 6.6 mg/dL (0.2-1.2); Blood Urea Nitrogen 9 mg/dL (8-26); Calcium 8.3 mg/dL (8.6-10.8); Carbon Dioxide 24 mEq/L (19-29); Chloride 101 mEq/L (98-109); Glucose 115 mg/dL (70-99); Osmolality,Calculated 274 (280-300); Potassium 3.6 mEq/L (3.5-4.5); Sodium 132 mEq/L (136-145); eGFR For African Americans > 60 (> 60); eGFR For Non-African Americans > 60 (> 60)
[2017-03-15 07:00] LABS: Platelet Estimate Decreased (Normal); Reactive Lymphocytes Present (Not Present)
[2017-03-15 07:01] LABS: Toxic Granulation Present (Not Present); Toxic Vacuolation Present (Not Present)
[2017-03-15] MEDS: NALOXONE HCL PO SCH (07:23)
[2017-03-15] MEDS: BUPRENORPHINE HCL PO SCH (07:23)
[2017-03-15] MEDS: Nicotine 21 MG PATCH.TD24 TD SCH (07:23)
[2017-03-15] MEDS: Ibuprofen 600 MG TABLET PO PRN (07:25)
[2017-03-15] MEDS ORDERED: *HR* LORazepam 2 MG/ML VIAL IVP PRN (09:07)
[2017-03-15] MEDS ORDERED: *HR* OxyCODONE Immed Rel 5 MG TABLET PO PRN (09:07)
[2017-03-15] MEDS ORDERED: *HR* Buprenorphine HCl 2 MG SUBLINGUAL TABLET SL SCH (09:15)
[2017-03-15 11:26] VITALS: BP 110/71
--- NOTE | 2017-03-15 11:52 | Internal Med Progress Note ---
<Stephanie Terrazas - Last Filed: 03/15/17 17:13> Date of Encounter: 03/15/17 Time of Encounter: 10:50 - Assessment and plan (1) Sepsis Status: Acute Assessment and plan: Patient presented to hospital with fever, tachycardia, leukocytosis, elevated lactate level Preliminary blood cultures positive for Gram positive cocci CT of left arm demonstrated soft tissue edema around elbow, no fluid collection or abscess, no elbow joint effusion, no acute osseous abnormality, foci of gas around the brachial neurovascular bundle in the arm which may be secondary to IVDA injection Patient on Vancomycin (day#2) and Cefepime (day#2) Leukocytosis resolved, WBC 10.4 today Continue IVF Will follow blood cultures Duration of antibiotics with be determined by clinical course Day 1 of antibiotics will begin on first day of negative blood culture Patient is high risk due to sepsis and multiple comorbidities including infection with hepatitis C Qualifiers: Sepsis type: sepsis due to unspecified organism Qualified Code(s): A41.9 - Sepsis, unspecified organism (2) Bacteremia Status: Acute Assessment and plan: Blood cultures with gram positive cocci on preliminary Will follow blood cultures Plan as above (3) Cellulitis of left forearm Status: Acute Assessment and plan: Plan as above (4) Thrombocytopenia Status: Acute Assessment and plan: Uncertain etiology May be secondary to infection with hepatitis C and liver dysfunction due to sepsis Patient did have evidence of splenomegaly on CT abdomen CBC differential does not have presence of schistocytes, therefore there is decreased concern for hemolytic anemia (5) Hyperbilirubinemia Status: Acute Assessment and plan: Etiology likely secondary to infection with Hepatitis C Patient has positive Hep C antibody screen Initial screening for Hep B inconclusive for HepBc Igm equivocal Will repeat screening for Hep B and Hep D to rule out superinfection (6) Left arm pain Status: Acute Assessment and plan: Continue pain management prn for left arm pain (7) Hepatitis B Status: Acute Assessment and plan: HBsAg negative and HB core IgM equivocal Initial screening for Hep B inconclusive Hep B superinfection may lead to fulminant liver failure Also Hep B superinfection may further complicate Hep C infection Hep B core total antibody, Hep B envelope Ab and antigen, Hep B virus quantitation, Hep D Ab and antigen, pending Qualifiers: Viral hepatitis chronicity: chronic Hepatic coma status: without hepatic coma Hepatitis delta agent presence: without delta-agent Qualified Code(s): B18.1 - Chronic viral hepatitis B without delta-agent (8) Hepatitis C Status: Acute Assessment and plan: Patient has positive Hep C antibody screen CT of abdomen with fatty liver and intrahepatic ductal dilation which may be secondary to Hep C infection Unsure of chronicity of Hep C infection Will order Hepatitis C Quantitative RNA with reflex genotyp Patient with long history of IVDA Will need to perform screening for HIV as well due to being high risk for infection Qualifiers: Viral hepatitis chronicity: chronic Hepatic coma status: without hepatic coma Qualified Code(s): B18.2 - Chronic viral hepatitis C (9) Fatty liver Status: Acute Assessment and plan: CT abdomen with findings of fatty liver Likely secondary to Hepatitis C infection Continue to monitor LFTs, bilirubin, INR (10) Splenomegaly Status: Acute Assessment and plan: Splenomegaly seen on CT abdomen Uncertain etiology (11) Intravenous drug abuse Status: Acute Assessment and plan: Patient on buprenorphine for w/d Ativan q6h prn for w/d from possible intoxication with additional drugs Likely etiology of cellulitis Hep A,B,C,D and HIV testing as above (12) Tobacco abuse Status: Acute Assessment and plan: Patient is on nicotine patch (13) DVT prophylaxis Status: Acute Assessment and plan: Heparin subcutaneously - Time Spent With Patient 25 - 35 minutes (30 minutes including time with patient and coordinating care) - Subjective Interval history: Patient presented to hospital 2 days ago with 3 week history of left arm pain and swelling. He states states that he fell in gravel 3 weeks ago and obtained an abrasion to the right elbow. He states that left arm has had increasing swelling since that time. Upon admission to [facility], patient admitted to fever, chills, and rigors. Today he admits to nausea and vomiting. Upon further questioning, patient admits to IV injection of suboxone to the left neck on 1 day before he presented to the hospital. Patient states that he shares needles with one other person. He states that he regularly uses suboxone IV, marijuana , smokes cigarettes. States that he uses a small amount of alcohol. He admits to prior use of heroin and metamphetamine. - Constitutional Vitals: Temp Pulse Resp BP Pulse Ox 97.3 F L 102 18 110/71 96 03/15/17 11:25 03/15/17 11:25 03/15/17 11:25 03/15/17 11:25 03/15/17 11:25 General appearance: Present: mild distress, A&O X 3, answers questions appropriately - Head Head exam: Present: atraumatic, normocephalic - Eye Eye exam: Present: scleral icterus, conjuntiva pink (and injected) - Neck Neck exam general surgery: Present: full ROM, supple, trachea midline. Absent: lymphadenopathy, tenderness, thyromegaly Additional comments: Track yesi present to left neck - Respiratory Respiratory exam: Present: CTAB. Absent: accessory muscle use, rales, rhonchi, wheezes - Cardiovascular Cardiovascular exam: Present: RRR, +S1, +S2. Absent: diastolic murmur, gallop, rubs, systolic murmur - GI/Abdominal GI/Abdominal exam: Present: normal bowel sounds, soft, no peritoneal signs. Absent: distended, tenderness Additional comments: Unable to perform deep abdominal palpation due to position of patient slouched in forward-leaning position - Extremities Exam Additional comments: Left arm: Swelling from left shoulder to left hand present, warmth and erythema , tense bulla present to lateral left arm, area of crusting to left lateral arm , limited ROM to left elbow, no area of fluctuance noted Capillary refill intact to left arm Bilateral hands with multiple scabs of varying ages No [place] nodes, [place] lesions, or splinter hemorrhages to bilateral hands or feet No petechiae noted on upper or lower extremities Bilateral feet malodorous with areas of black crusting with maceration between toes and brown, hyperkeratotic scales to plantar surfaces - Neurological Exam Neurological exam: Present: CN II-XII intact, oriented X3, no focal deficits. Absent: pronater drift, facial droop, speech deficit - Psychiatric Additional comments: Slow speech, responds to questions appropriately - Skin Skin exam: Present: dry, intact Internal Medicine: Result - Labs CBC & Chem 7: 03/15/17 06:14 03/15/17 06:14 Labs: Short CBC 03/15/17 Range/Units 06:14 WBC 10.4 (4.3-11.1) K/mcL Hgb 10.5 L (12.9-16.9) g/dL Hct 29.9 L (37.5-50.1) % Plt Count 74 L (140-400) K/mcL Neutrophils # 9.0 H (1.6-8.9) K/mcL BMP 03/15/17 06:14 Sodium 132 L Potassium 3.6 Chloride 101 Carbon Dioxide 24 BUN 9 Creatinine 0.71 L Glucose 115 H Calcium 8.3 L Liver Function 03/15/17 Range/Units 06:14 Total Bilirubin 6.6 H (0.2-1.2) mg/dL Direct Bilirubin 5.5 H (0.0-0.5) mg/dL AST 37 H (5-34) Units/L ALT 41 (0-55) Units/L Alkaline Phosphatase 111 (38-126) Units/L Albumin 2.0 L (3.5-5.0) g/dL - Impressions Upper Extremity CT 03/13/17 16:49 IMPRESSION: 1. Extensive superficial soft tissue edema around the elbow posteriorly. No fluid collection or abscess. 2. No elbow joint effusion. No acute osseous abnormality. 3. Foci of gas around the brachial neurovascular bundle in the arm are likely intravascular. Correlate for any signs of recent injection in the left arm or IV placement. D/ / 03/13/2017 20:43:12 Jeremiah Houser MD / [facility] Interpreting Provider: Jeremiah Houser MD Chest X-Ray 03/13/17 16:54 IMPRESSION: Normal chest. D/ / 03/13/2017 17:38:37 Andres Xie MD / [facility] Interpreting Provider: Andres Xie MD Chest CT 03/13/17 19:29 IMPRESSION: 1. No acute intrathoracic findings. 2. Partially visualized subcutaneous edema within the distal left upper extremity with multiple locules of subcutaneous gas surrounding the distal left basilic vein. Findings may be from injection site in this patient with given history of IV drug abuse. The pronounced soft tissue edema is concerning for cellulitis. Numerous enlarged axillary lymph nodes are identified, likely reactive. D/ / Sherif Liriano MD / Sherif Liriano MD Interpreting Provider: Sherif Liriano MD Abdomen/Pelvis CT 03/13/17 19:34 IMPRESSION: 1. Splenomegaly which is quite significant. Diffuse fatty infiltration of the liver. No evidence of biliary dilatation. Acute hepatitis should be considered. 2. No acute gastrointestinal abnormality. D/ / 03/13/2017 20:33:03 Rosemarie Dove MD / [facility] Interpreting Provider: Rosemarie Dove MD Abdomen Ultrasound 03/14/17 11:00 IMPRESSION: 1. Biliary sludge and microlithiasis. 2. Nonspecific intrahepatic biliary dilatation and gallbladder wall thickening with pericholecystic fluid. This could represent acute cholecystitis versus primary hepatitis with secondary gallbladder dilatation. 3. The common bile duct is normal. D/ / 03/14/2017 12:05:37 Edwin Montague MD / [facility] Interpreting Provider: Edwin Montague MD Consult Discharge Plan - Plan Referrals: Stephanie Medley CNP [Primary Care Provider] - <Shannon Marcial E - Last Filed: 03/15/17 18:34> Date of Encounter: 03/15/17 - Constitutional Vitals: Temp Pulse Resp BP Pulse Ox 97.3 F L 102 18 110/71 96 03/15/17 11:25 03/15/17 11:25 03/15/17 11:25 03/15/17 11:25 03/15/17 11:25 Internal Medicine: Result - Labs CBC & Chem 7: 03/15/17 06:14 03/15/17 06:14 Labs: Short CBC 03/15/17 Range/Units 06:14 WBC 10.4 (4.3-11.1) K/mcL Hgb 10.5 L (12.9-16.9) g/dL Hct 29.9 L (37.5-50.1) % Plt Count 74 L (140-400) K/mcL Neutrophils # 9.0 H (1.6-8.9) K/mcL BMP 03/15/17 06:14 Sodium 132 L Potassium 3.6 Chloride 101 Carbon Dioxide 24 BUN 9 Creatinine 0.71 L Glucose 115 H Calcium 8.3 L Liver Function 03/15/17 Range/Units 06:14 Total Bilirubin 6.6 H (0.2-1.2) mg/dL Direct Bilirubin 5.5 H (0.0-0.5) mg/dL AST 37 H (5-34) Units/L ALT 41 (0-55) Units/L Alkaline Phosphatase 111 (38-126) Units/L Albumin 2.0 L (3.5-5.0) g/dL - Attending Attestation I examined this patient and reviewed laboratory, imaging and all diagnostic data. My medical decision-making was reviewed with Dr Terrazas - Resident Physician. I agree with the documented findings, disposition and treatment plan as described above
[2017-03-15] MEDS ORDERED: Aminoglycoside Consult 1 EACH MC ONE (15:59)
[2017-03-15] MEDS ORDERED: *HR* Heparin 5,000 UNIT/ML VIAL SQ SCH (18:00)
--- NOTE | 2017-03-15 18:54 | Event Note ---
Date of Encounter: 03/15/17 Time of Encounter: 14:45 Discharge summary - Left AMA. Mr. Molina is a 31 year old male with a past medical history of remote IV drug abuse, tobacco abuse, and hepatitis B and C who presented with an infection in his left elbow for the past month but worse in the past few days. He was admitted with diagnosis of sepsis secondary to left elbow cellulitis and acute hepatitis. CT of the left upper extremity showed no abscess. CT scan of the abdomen shows swelling of the liver consistent with possible hepatitis and splenomegaly. Patient was started on IV fluids, vancomycin and Zosyn due to history of IV drug abuse. Patient decided to leave the hospital because he needed to move his camper. I explained to the patient his diagnosis, his treatment and the risks of leaving the hospital and not continuing therapy. He verbalized understanding and signed the AMA form and stated that he will come back to our ED later today.
[2017-03-18 07:59] LABS: Hepatitis A Antibody Total POSITIVE (Negative); Hepatitis B Core Ab Total POSITIVE (Negative); Hepatitis Be Antigen NEGATIVE (Negative)
[2017-03-19 08:24] LABS: HCV Quant Interpretation DETECTED (Not Detected)
[2017-03-19 11:11] LABS: Hepatitis Be Antibody POSITIVE (Negative); Hepatitis Delta Antibody NEGATIVE (Negative)
[2017-03-19 11:25] LABS: HBV Quant by PCR <20 IU/mL
[2017-03-19 11:41] LABS: HBV Quant Interpretation NOT DETECTED (Not Detected); HBV Quant Log by PCR <1.3 log IU
[2017-03-23 12:54] LABS: HCV Genotype by Sequencing 3A
[2017-03-24 13:33] LABS: Hepatitis Delta Antigen NEGATIVE (Negative)
== END 2017-03-15 16:00 | disposition left against medical advice (07) | DRG 720 ==
LOC: EMEROO 16:21 → 3ANU 16:21 → SUATTDRO 22:21 → 3ANU 22:23
PROVIDERS: ADMIT Internal Medicine; ATTEND Internal Medicine